=== PATIENT | male | born 1985 | race Caucasian/White ===

== ENCOUNTER → 2016-11-12 | Outpatient (CLI) | payer BC ==
[~2016-11-12] MED LIST: FLX10 PO; MULT-506 PO; OXYC-57 PO
[2016-11-12 11:44] LABS: ALT/SGPT 58 U/L (12-78); AST/SGOT 29 U/L (15-37); BLOOD UREA NITROGEN 14 mg/dl (7-18); CALCIUM 9.3 mg/dl (8.5-10.1); CARBON DIOXIDE 28 mmol/L (21-32); CHLORIDE 104 mmol/L (98-107); CREATININE 0.89 mg/dl (0.60-1.40); GLUCOSE 96 mg/dl (70-99); SODIUM 140 mmol/L (136-145)
[2016-11-12 11:48] LABS: ALB/GLOB RATIO 1.3 (0.9-2); ALKALINE PHOSPHATASE 81 U/L (45-117); CHOLESTEROL 229 mg/dl (0-200); HDL CHOLESTEROL 38 mg/dl; LDL CHOLESTEROL CALCULATED 148 mg/dl; TRIGLYCERIDES 216 mg/dl (0-150); VERY LOW DENSITY LIPOPROT CALC 43 mg/dl
== END | disposition home or self-care (01) ==
LOC: C.LAB1850 10:33
PROVIDERS: ATTEND Nurse Practitioner
DX: E78.5 Hyperlipidemia, unspecified (principal)

== ENCOUNTER → 2016-12-10 | Outpatient (CLI) | payer BC ==
[2016-12-10 13:02] LABS: BLOOD UREA NITROGEN 12 mg/dl (7-18); BUN/CREATININE RATIO 16.1 (10-20); CALCIUM 9.6 mg/dl (8.5-10.1); CARBON DIOXIDE 29 mmol/L (21-32); CHLORIDE 106 mmol/L (98-107); CREATININE 0.75 mg/dl (0.60-1.40); GLUCOSE 78 mg/dl (70-99); POTASSIUM 3.6 mmol/L (3.5-5.1); SODIUM 141 mmol/L (136-145)
== END | disposition home or self-care (01) ==
LOC: C.LAB1850 11:24
PROVIDERS: ATTEND Nurse Practitioner
DX: I10 Essential (primary) hypertension (principal)

== ENCOUNTER → 2018-04-26 | Outpatient (CLI) | payer BC, OTHER | END | disposition home or self-care (01) | LOC: C.RDSM 08:10 | PROVIDERS: ATTEND Orthopaedic Surgery Sports Medicine | DX: M25.562 Pain in left knee (principal) ==

== ENCOUNTER → 2018-05-04 | Outpatient (CLI) | payer OTHER ==
--- NOTE | 2018-05-04 12:48 | DIAGNOSTIC IMAGING REPORT ---
L LOWER EXT JOINT WITHOUT CLINICAL HISTORY: 33 years-old Male with M25.562,S83.289A,Z98.890. Acute pain of the lateral left knee. History of prior lateral left knee meniscal tear with surgical repair. COMPARISON: Left knee radiographs 04/26/2018 TECHNIQUE: Multiplanar, multisequence MRI of the left knee was performed without intravenous contrast. FINDINGS: MENISCI: Diminutive lateral meniscal body compatible with history of prior partial meniscectomy. There is a subtle area of linear increased T2 signal involving the posterior junction lateral meniscus extending to the superior articular service, image 19 series 6 with additional subtle areas of linear increased T2 signal about the lateral meniscal body seen only on image 16 series 9 with suggested extension to the superior articular surface. The medial meniscus is sharp in contour and appears intact. CRUCIATE LIGAMENTS: The anterior and posterior cruciate ligaments are normal in signal, morphology and course. COLLATERAL LIGAMENTS: The popliteus tendon, biceps femoris tendon, fibular collateral ligament and iliotibial band are intact. The superficial and deep components of the medial collateral ligament are intact. EXTENSOR MECHANISM: The quadriceps and patellar tendons are intact. The medial and lateral patellar retinacula are intact. KNEE JOINT: There is no large joint effusion. 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 Additionally, there is a focal area of intermediate grade chondromalacia (grade III) about the medial aspect of the lateral tibial plateau, image 15 series 6. BONE MARROW: The bone marrow signal is age appropriate. No fracture, or marrow replacing process. Mild subchondral bone marrow edema of the medial aspect of the lateral tibial plateau, image 18 series 9 and image 15 series 6. SOFT TISSUES: Trace Ferris's cyst measuring up to 1.4 cm in length with otherwise normal appearance of the periarticular soft tissues. IMPRESSION: 1. Evidence of prior partial lateral meniscectomy. Subtle areas of linear increased T2 signal involving the posterior junction and body of the lateral meniscus as above may reflect postsurgical changes or areas of subtle re-tear. Correlation with clinical exam and patient symptoms recommended. 2. 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 3. No ligamentous or tendinous tear identified. 4. Trace Ferris's cyst. The above report was generated using voice recognition software. It may contain grammatical, syntax or spelling errors. Electronically signed by: Zach Carson M.D. 05/04/2018 12:47 PM Dictated Date/Time: 05/04/2018 12:14 PM
== END | disposition home or self-care (01) ==
LOC: C.MRI 11:17
PROVIDERS: ATTEND Orthopaedic Surgery Sports Medicine
DX: M25.562 Pain in left knee (principal); S83.282A Other tear of lateral meniscus, current injury, left knee, initial encounter; Z98.890 Other specified postprocedural states; M94.262 Chondromalacia, left knee; M71.22 Synovial cyst of popliteal space [Baker], left knee; X58.XXXA Exposure to other specified factors, initial encounter